=== PATIENT | male | born 1975 | race Caucasian/White ===

== ENCOUNTER 2025-02-25 10:33 | Observation (INO) | payer BC, SELFPAY ==
[2025-02-25 10:45] VITALS: BP 138/91; PULSE 69; RESP 24; TEMP 36.6; O2SAT 97; BMI 33.8
--- NOTE | 2025-02-25 11:59 | ECG_ITS ---
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 Measurements Intervals [place] Rate: 67 P: 37 [place]: 167 QRS: -7 QRSD: 98 T: 22 QT: 392 QTc: 414 Interpretive Statements SINUS RHYTHM No previous ECG available for comparison Electronically Signed On 02-25-2025 12:57:04 CDT by Elva Sinclair M.D. [email or web address]
[2025-02-25 12:00] VITALS: BP 123/80; PULSE 73; RESP 24; TEMP 36.6; O2SAT 95
--- NOTE | 2025-02-25 12:15 | PC.NURSE ---
received into room 112-2,as transfer from [facility],at 10:45.family had driven him to [facility].pt is alert and awake and oriented x 4.sr on monitor.pt is c/o of chest tightness in left chest..rating pain 3/10.vss.no sob,no diaphoresis.d-dimer and troponins were negative a formerly [facility], [facility].dr cabral notified that pt is in house.
--- NOTE | 2025-02-25 13:31 | USCV_ITS ---
Pelon Sheffield Age: 49 Gender: M : 1975 Exam Date: 02/25/2025 14:31 Ordering Phys: Nini Olivas MD Technologist: EDDIE [place] [facility] [place]: angina BP: 123 / 80 HR: 75 Rhythm: Sinus Technical Quality: Adequate MEASUREMENTS (Male / Female) Normal Values 2D ECHO LVOT Diameter 2.0 cm LV Ejection Fraction MOD 4C 66.5 % LV Ejection Fraction MOD 2C 64.6 % LV Ejection Fraction 2C AL 62.5 % LA Diameter 4.1 cm RA Systolic Volume 4C AL 38.8 ml RA Systolic Volume 4C MOD 36.1 ml LA Sys Volume AL 44.2 cm cubed LA Sys Volume Index AL 17.5 cm cubed/m squared Aorta at Sinotubular Diameter 2.8 cm M-MODE LA Ao Ratio MM 1.3 AV Cusp Separation MM 2.0 cm DOPPLER AV Peak Velocity 121.0 cm/s LVOT Peak Velocity 97.0 cm/s AV Area Cont Eq vti 2.4 cm squared AV Area Cont Eq pk 2.6 cm squared MV Peak Velocity 72.0 cm/s MV Area PHT 4.1 cm squared Mitral E to A Ratio 1.0 TV Peak Velocity 269.7 cm/s TR Peak Velocity 311.0 cm/s TR Peak Gradient 38.7 mmHg TR Mean Velocity 224.0 cm/s TR Mean Gradient 21.6 mmHg TR Velocity Time Integral 65.7 cm PV Peak Velocity 100.7 cm/s RV Ejection Time 0.3 s FINDINGS Left Ventricle Normal left ventricular size and systolic function, EF 62%.. No regional wall motion abnormalities. Right Ventricle The right ventricle is normal in size and function. Right Atrium The right atrium is normal in size. Left Atrium The left atrium is normal in size. Mitral Valve No gross abnormalities noted.trace mitral valve regurgitation. Aortic Valve No gross abnormalities noted Tricuspid Valve Trace tricuspid valve regurgitation. Pulmonic Valve Structurally normal pulmonic valve without significant stenosis. There is no pulmonic regurgitation. Pericardium Normal pericardium without effusion. Aorta Normal ascending aorta dimension. IVC Inferior vena cava not visualized. CONCLUSIONS Normal left ventricular size and systolic function, EF 62%.. No regional wall motion abnormalities. Normal cardiac chamber sizes. Trace of mitral and tricuspid regurgitation. The PA pressure could not be calculated because of the poor Doppler signals There is no pericardial effusion. There are no intracardiac masses. No similar previous studies are available for comparison Dr Elva Sinclair MD [facility] (Electronically Signed) Final Date: 26 February 2025 09:27 S
--- NOTE | 2025-02-25 13:37 | P.HP_ITS ---
Providers/Chief Complaint 2 Admitting Physician: Nini Olivas MD Chief Complaint: Chest Pain History of Present Illness Pelon Sheffield is a 49 year old male without known significant comorbidities who presented to outside hospital today with chief complaints of chest pain. Patient states that the pain woke him up from sleep at around 530 this morning. It was located on the left side of his chest. Radiating anteriorly and then into his arm. Pain was rated 8 out of 10 at onset. He took 3 aspirins at home as he was worried about having an NH and presented to the nearest hospital. There is he received sublingual nitroglycerin twice and his pain is currently down to 2 out of 10. In reviewing the records from [facility], D-dimer was negative therefore PE was ruled out. First troponin was negative. EKG did not show any signs of acute ST-T wave elevation or other changes. Associated symptoms included intense nausea diaphoresis and feeling short of breath at the time of onset of symptoms. This feeling has now subsided. He complains of generalized weakness after this episode. 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 He has not been sick recently. No fever chills. No history of premature CAD in family. No known history of hypertension diabetes or dyslipidemia. He does not smoke but chews tobacco. Review of Systems 2 General: Reports: 10 or more systems reviewed and unremarkable except in HPI and below Const: Denies: fever(s), chills or body aches Eyes: Denies: change in vision, blurry vision or photophobia ENMT: Reports: hoarseness; Denies: throat pain, enlarged tonsils, odynophagia or nasal congestion Card: Denies: chest pain, palpitations, irregular heart rhythm, edema, swelling of feet/ankles, lightheadedness, pre-syncope, dyspnea on exertion or orthopnea Resp: Denies: dyspnea, productive cough, non-productive cough, wheezing, stridor, pain on inspiration, change in phlegm color, hemoptysis or chest congestion GI: Denies: abdominal pain, nausea, vomiting, hematemesis, coffee ground emesis, dysphagia, heartburn, diarrhea, constipation, GI cramping, change in stool character, hematochezia or melena : Denies: flank pain, dysuria, urinary frequency, urinary urgency, urinary hesitancy or hematuria Musc: Denies: neck pain, back pain, extremity pain, joint swelling, joint warmth or deformity Neuro: Denies: headache(s), numbness in extremities, weakness in extremities, sensory changes, difficulty walking, frequent falls, dizziness, vertigo, behavioral changes, Slurred speech present or seizure-like activity Psych: Denies: anxiety, depression, suicidal ideation or homicidal ideation Endo: Denies: polyuria, polydipsia, tired all the time, cold intolerance or hot flashes Dorian/Lymph: Denies: easy bruising or easy bleeding Medications/Allergies Home Medications ?Medication ?Instructions ?Recorded ?Confirmed ?Last Taken ?Type Aspirin Low-Strength 81 mg PO DAILY 02/25/2502/0402/25/25 05:00 History 81 mg Allergies Allergy/AdvReac Type Severity Reaction Status Date / Time egg Allergy ALGY-Hives Verified 02/25/25 10:58 Vitals/I&O/Wt Last Vital Signs Temp 97.8 F 02/25/25 12:00 Pulse 73 02/25/25 12:00 Resp 24 H 02/25/25 12:00 BP 123/80 02/25/25 12:00 Pulse Ox 95 02/25/25 12:00 O2 Del Method Room Air 02/25/25 10:45 Weight last 48 hrs Weight 119.522 kg Physical Exam 2 Narrative: General: No acute distress, AO x3 HEENT: PERRLA, pupils bilaterally equal and reactive, pallors not present Chest: Normal vesicular breath sounds, no added sounds, equal good air entry bilaterally CVS: S1-S2 regular, no murmurs, no tachycardia, no gallops, no rubs Abdomen: Soft, nontender, no organomegaly, bowel sounds present Neuro: No focal deficits, no facial deformity, AO x3, power 5/5 in all limbs Data 02/25/25 13:27 02/25/25 13:27 A&P Assessment and plan 1. Chest pain: Patient transferred from outside hospital in view of chest pain. EKG did not show any acute ST-T wave changes. First troponin was negative at [facility]. D-dimer was additionally negative. He currently reports that pain is still persisting however improved after being administered nitroglycerin. Concern is for potential anginal chest pain versus NSTEMI. We will order troponin series and EKG series here for serial follow-through. Obtain chest x-ray. D-dimer previously reported negative from [facility]. Echocardiogram ordered to assess for any regional wall motion abnormalities. HbA1c lipid panel screen. Further plan based on results of above testing - stress test vs cardiology assessment PDMP PDMP Reviewed: Not Reviewed Attestations 2 Medical Necessity Statement*: Less than 2 midnight stay is currently anticipated Coding Level of Care Code Acute Code for Chg Fwd High MDM includes number and complexity of problems actively addressed during encounter, amount and/or complexity of data reviewed/ordered and described risk of complication, morbidity or mortality of management as documented Diagnoses Chest pain R07.9
[2025-02-25 13:41] LABS: Hematocrit 43.7 % (37-53); Hemoglobin 15.30 g/dL (11.27-16.99); Mean Corpuscular HGB Conc 35.0 g/dL (30-55); Mean Corpuscular Hemoglobin 30.3 pg (27-33); Mean Corpuscular Volume 86.5 fl (82-101); Nucleated Red Blood Cells % 0 %; Platelet Count 243 10^3/cmm (157-399); Red Blood Count 5.05 10^6/uL (3.85-5.65); White Blood Count 7.64 10^3/uL (3.29-11.43)
[2025-02-25 14:07] VITALS: BP 123/80; PULSE 75
[2025-02-25] MEDS: nitroglycerin 1 gm/inch oint Pkt 0.5 INCH TOPICAL ×2 (14:07→20:20)
[2025-02-25 14:08] LABS: Troponin(5th) Baseline < 6 ng/L (0-15)
[2025-02-25 14:19] LABS: Alanine Aminotransferase 42 U/L (0-41); Albumin Level 4.1 g/dL (3.5-5.2); Alkaline Phosphatase 79 U/L (40-130); Aspartate Amino Transferase 22 U/L (0-40); Blood Urea Nitrogen 10 mg/dL (6-20); Calcium 8.9 mg/dL (8.5-10.5); Carbon Dioxide 18 mmol/L (22-29); Chloride 105 mmol/L (98-107); Cholesterol 161 mg/dL (0-200); Creatinine Clr Calc Pharmacy 125.4580; Globulin 2.1 g/dL (1.3-4.6); Glucose 89 mg/dL (65-115); HDL Cholesterol 33 mg/dL (60-100); Osmolality Calculated 281 mOsm/kg (285-295); Sodium 136 mmol/L (136-145); Thyroid Stimulating Hormone 1.27 uIU/mL (0.27-4.20); Total Protein 6.2 g/dL (6.6-8.7); Triglycerides 125 mg/dL (0-150)
[2025-02-25 14:20] LABS: Anion Gap 17.1 (5-19); Estmated Average Glucose 114; Hemoglobin A1C 5.6 % (4.0-6.0); Potassium 4.1 mmol/L (3.5-5.1)
--- NOTE | 2025-02-25 14:59 | ECG_ITS ---
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 Measurements Intervals [place] Rate: 80 P: 38 RI: 163 QRS: -18 QRSD: 92 T: 30 QT: 368 QTc: 427 Interpretive Statements SINUS RHYTHM Compared to ECG 02/25/2025 12:08:01 No significant changes Electronically Signed On 02-26-2025 18:56:43 CDT by Elva Sinclair M.D. [email or web address] [id number]
--- NOTE | 2025-02-25 15:35 | ECG_ITS ---
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 Measurements Intervals [place] Rate: 81 P: 45 DC: 168 QRS: -18 QRSD: 94 T: 29 QT: 362 QTc: 420 Interpretive Statements SINUS RHYTHM Compared to ECG 02/25/2025 14:59:07 No significant changes Electronically Signed On 02-26-2025 19:11:03 CDT by Elva Sinclair M.D. [email or web address] [id number]
[2025-02-25 15:48] LABS: Troponin 5 2HR < 6.0 ng/L (0-15); Troponin 5 2HR Delta 0 ABS# (0-10)
[2025-02-25 16:00] VITALS: BP 146/80; PULSE 97; RESP 18; TEMP 37.3; O2SAT 93
[2025-02-25 20:00] VITALS: BP 106/77; PULSE 82; RESP 15; TEMP 37.1; O2SAT 95
--- NOTE | 2025-02-25 21:05 | ECG_ITS ---
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 Measurements Intervals [place] Rate: 83 P: 45 [place]: 159 QRS: -21 QRSD: 98 T: 31 QT: 352 QTc: 415 Interpretive Statements SINUS RHYTHM BORDERLINE LEFT AXIS DEVIATION [QRS AXIS < -20] Compared to ECG 02/25/2025 16:20:10 No significant changes Electronically Signed On 02-26-2025 19:06:03 CDT by Elva Sinclair M.D. [email or web address] [id number]
[2025-02-25 21:16] LABS: Troponin 5 6HR < 6.0 ng/L (0-15); Troponin 5 6HR Delta 0 ng/L (0-12)
[2025-02-26] VITALS (7 sets, daily range): BP systolic 112–130; BP diastolic 66–90; PULSE 68–91; RESP 20–24; TEMP 36.4–37.1; O2SAT 95–98
--- NOTE | 2025-02-26 10:54 | CTR_ITS ---
PROCEDURE INFORMATION: Exam: CTA Chest With Contrast Exam date and time: 02/26/2025 11:10 AM Age: 49 years old Clinical indication: Pain; Dyspnea; Chest pressure; Additional info: Chest pain, evaluate for pe TECHNIQUE: Imaging protocol: Computed tomographic angiography of the chest with contrast. Exam focused on the arteries. 3D rendering (Not supervised by radiologist): MIP and/or 3D reconstructed images were created by the technologist. Radiation optimization: All CT scans at this facility use at least one of these dose optimization techniques: automated exposure control; mA and/or kV adjustment per patient size (includes targeted exams where dose is matched to clinical indication); or iterative reconstruction. Contrast material: OMNIPAQUE 350; Contrast volume: 69 ml; Contrast route: INTRAVENOUS (IV); COMPARISON: No relevant prior studies available. RADIATION DOSE METRICS: Total DLP (mGy-cm): 496 FINDINGS: Pulmonary arteries: No central or lobar pulmonary embolism. Aorta: Unremarkable. No aortic aneurysm. No aortic dissection. Lungs: Mild dependent atelectasis bilaterally. Pleural spaces: Unremarkable. No pneumothorax. No pleural effusion. Heart: Unremarkable. No cardiomegaly. No pericardial effusion. Lymph nodes: Calcified hilar lymph nodes likely reflecting sequela of chronic granulomatous disease. Pancreas: Mild fatty parenchymal atrophy of the pancreas. Spleen: Multiple calcified granulomas in the spleen. Bones/joints: Mild multilevel degenerative disease of the thoracic spine. Soft tissues: Mild gynecomastia bilaterally. CT/CT angio chest PE protcl [id number] IMPRESSION: 1. No acute central or lobar pulmonary embolism. 2. No focal consolidation, pneumothorax, or pleural effusion.
--- NOTE | 2025-02-26 10:56 | P.PN_ITS ---
Subjective 2 Subjective: States pain is better compared to yesterday, he however still feels like he has chest pressure over the central chest. Rates it at 5 out of 10. Not associated with any exertion or movement. Medications: Reviewed: Yes Vitals/I&O/Wt Last Vital Signs Temp 98.3 F 02/26/25 08:00 Pulse 85 02/26/25 08:00 Resp 20 H 02/26/25 08:00 BP 127/86 02/26/25 08:00 Pulse Ox 96 02/26/25 08:00 O2 Del Method Room Air 02/26/25 08:00 02/25/25 02/26/25 02/26/25 22:59 06:59 14:59 Intake Total 720 / 720 600 / 1320 240 / 240 Balance 720 / 720 600 / 1320 240 / 240 Weight last 48 hrs Weight 119.612 kg Weight 119.522 kg Physical Exam 2 Narrative: General: No acute distress, AO x3 HEENT: PERRLA, pupils bilaterally equal and reactive, pallors not present Chest: Normal vesicular breath sounds, no added sounds, equal good air entry bilaterally CVS: S1-S2 regular, no murmurs, no tachycardia, no gallops, no rubs Abdomen: Soft, nontender, no organomegaly, bowel sounds present Neuro: No focal deficits, no facial deformity, AO x3, power 5/5 in all limbs Data 02/25/25 13:27 02/25/25 13:27 A&P Assessment and plan 1. Chest pain: Patient transferred from outside hospital in view of chest pain. EKG did not show any acute ST-T wave changes. First troponin was negative at [facility]. D-dimer was additionally negative. He currently reports that pain is still persisting however improved after being administered nitroglycerin. Concern is for potential anginal chest pain versus NSTEMI. We will order troponin series and EKG series here for serial follow-through. Obtain chest x-ray. D-dimer previously reported negative from [facility]. Echocardiogram ordered to assess for any regional wall motion abnormalities. HbA1c lipid panel screen. Further plan based on results of above testing - stress test vs cardiology assessment February 26, 2025 Continues to complain of central chest pressure. Not related to any exertion. It is constant 5 out of 10. There is noted to be tenderness over the left chest wall. Pain to palpation over the left lateral ribs. 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 Suspect this may be musculoskeletal in nature, however with ongoing pain would want to exclude PE. Will proceed with CTA of the chest. This study will additionally evaluate for any rib fractures or masses given that patient reports a history of chronic tobacco chewing over years. If negative will proceed with cardiac stress test tomorrow morning to evaluate for cardiac etiology. Musculoskeletal pain remains in the differentials. Trial of Toradol today. PDMP PDMP Reviewed: Not Reviewed Attestations 2 Medical Necessity Statement*: Planned CTA and stress test Coding Level of Care Code Acute Code for [facility] Fwd Diagnoses Chest pain R07.9
[2025-02-26] MEDS: iohexol 350 mg/mL 500 mL Btl (per mL) IV (11:18)
--- NOTE | 2025-02-26 15:09 | P.CONIM_ITS ---
Providers/Reason For Consult 2 Consulting Physician/Specialty*: JEAN Sinclair MD/cardiology Reason for Consult*: Patient with new onset of chest pain Requesting Physician: Dr Emma Olivsa Attending Physician: Nini Olivas MD History of Present Illness History of Present Illness Pelon Sheffield is a 49 year old male with no significant past medical history, is transferred to our hospital from [facility] emergency room where he presented with complaints of acute onset of chest pain. According the patient, he has been in his baseline state of health up until 5:30 in the morning of yesterday when he woke up with left-sided chest pain. The pain started in the axillary region and then radiated to the left side of the chest. It is moderate to severe in intensity. He had associated shortness of breath, nausea, sweating and some dizziness. One time he almost felt like going to pass out. He took a total of 3 baby aspirin at home. Pain may have subsided a little bit. Because of the persistence of the chest pain, he was taken to the [facility] emergency room. His initial cardiac workup was negative. He D-dimer was found to be negative. Chest pain might have lasted for a total of an hour and a half. He was given total of 2 sublingual nitro in the emergency room. The chest pains finally subsided. However he continued to have some tightness or heaviness in the chest. At the time of examination, patient is complaining of some heaviness/tight feeling. He denies any history of fall or any traumatic injury of the chest wall. No history of any fever, chills or cough. 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 He has not been using [employer] in the recent past. No unusual physical activities in the recent past He has no previous history of coronary coronary disease, myocardial infarction or congestive heart failure. He was chewing tobacco for the last 40 years or so. No alcohol abuse or any substance abuse. He chews 1 can of tobacco every other day. He father had a PCI in his 50s. Mother had congestive heart failure. No other relevant family history. Review of Systems 2 Narrative: CONSTITUTIONAL: No fever or chills. EYES: No blurring of vision or other visual disturbances lately. ENT: No hoarseness of voice, auditory disturbances or sore throat. CARDIOVASCULAR: As mentioned above. RESPIRATORY: He has a history of chronic cough ever since the COVID GASTROINTESTINAL: No hematemesis or melena. GENITOURINARY: No dysuria or hematuria. INTEGUMENTARY: No skin rashes or history of skin cancer. NEURO: No transient ischemic attacks or amaurosis. PSYCHIATRIC: No history of psychosis or major depression. HEMATOLOGIC: No bleeding disorders or significant anemia. ENDOCRINE: No history of polyuria or polydipsia. MUSCULOSKELETAL: No recent joint pain or swelling. ALLERGY/IMMUNOLOGY: As mentioned above. Medications/Allergies Home Medications ?Medication ?Instructions ?Recorded ?Confirmed ?Last Taken ?Type Aspirin Low-Strength 81 mg PO DAILY 02/25/25 08/09/2702/25/25 05:00 History 81 mg Allergies Allergy/AdvReac Type Severity Reaction Status Date / Time egg Allergy ALGY-Hives Verified 02/25/25 10:58 Current Medications Generic Name Dose Route Start Last Admin Trade Name Freq PRN Reason Stop Dose Admin Aspirin 81 mg 02/26/25 09:00 02/26/25 08:42 Aspirin 81 Mg Ec Tablet PO 81 mg DAILY KYLEIGH Administration Atorvastatin Calcium 40 mg 02/25/25 21:00 02/25/25 20:20 Atorvastatin 40 Mg Tablet PO 40 mg BEDTIME KYLEIGH Administration Enoxaparin Sodium 40 mg 02/25/25 13:45 02/26/25 12:41 Enoxaparin 40 Mg/0.4 Ml Syringe SUBCUT 40 mg Q24H KYLEIGH Administration Nitroglycerin 0.5 inch 02/25/25 13:45 02/26/25 12:18 Nitroglycerin 1 Gm/Inch Oint Pkt TOPICAL Not Given Q6H KYLEIGH Pantoprazole Sodium 40 mg 02/26/25 09:00 02/26/25 08:[address] 40 Mg Tablet PO 40 mg DAILY KYLEIGH Administration Vitals/I&O/Wt Last Vital Signs Temp 97.5 F L 02/26/25 12:00 Pulse 73 02/26/25 12:00 Resp 24 H 02/26/25 12:00 BP 130/76 02/26/25 12:00 Pulse Ox 95 02/26/25 12:00 O2 Del Method Room Air 02/26/25 12:00 02/26/25 02/26/25 02/26/25 06:59 14:59 22:59 Intake Total 600 / 1320 480 / 480 Balance 600 / 1320 480 / 480 Weight last 48 hrs Weight 263 lb 11.2 oz Weight 263 lb 8 oz Physical Exam 2 Narrative: GENERAL: The patient is alert and oriented times three. Not in any acute distress. HEENT: No significant pallor, icterus or lymphadenopathy.Oral cavity: There are no mucous membrane lesions. NECK: Trachea appears to be central. No masses noted. No JVD or thyromegaly appreciated. RESPIRATORY: Chest is symmetrical. No intercostals muscle retraction or any accessory muscle activation. There is no chest wall tenderness. Breath sounds are heard bilaterally. No rales or rhonchi heard. No evidence of any consolidation. BREASTS: Deferred. HEART: The heart sounds are normal. No S3 or S4. No significant murmurs. No pericardial rub ABDOMEN: No vessel pulsations or distention. No tenderness. No organomegaly appreciated. Bowel sounds are normally heard. : Deferred. RECTAL: Deferred. LYMPHATIC: No lymphadenopathy noted in the neck. EXTREMITIES: No edema or cyanosis. No clubbing. MUSCULOSKELETAL: No acute joint deformities or swelling SKIN: There are no significant rashes or ecchymosis NEUROPSYCHIATRIC: The patient is alert and oriented x3. Appears to be in a good mood. No tremors or rigidity noted. Data 02/25/25 13:27 02/25/25 13:27 Other Labs: Laboratory Last Values WBC 7.64 10^3/uL (3.29-11.43) 02/25/25 13:27 RBC 5.05 10^6/uL (3.85-5.65) 02/25/25 13:27 Hgb 15.30 g/dL (11.27-16.99) 02/25/25 13:27 Hct 43.7 % (37-53) 02/25/25 13:27 MCV 86.5 fl (82-101) 02/25/25 13:27 MCH 30.3 pg (27-33) 02/25/25 13:27 MCHC 35.0 g/dL (30-55) 02/25/25 13:27 RDW 11.8 % (12.1-15.1) L 02/25/25 13:27 Plt Count 243 10^3/cmm (157-399) 02/25/25 13:27 MPV 9.3 fL (7.4-10.4) 02/25/25 13:27 Neut % (Auto) 68.7 % 02/25/25 13:27 Lymph % (Auto) 21.5 % 02/25/25 13:27 [place] % (Auto) 7.5 % 02/25/25 13:27 Eos % (Auto) 1.4 % 02/25/25 13:27 Baso % (Auto) 0.5 % 02/25/25 13:27 Neut # (Auto) 5.25 10^3/uL (1.8-7.7) 02/25/25 13:27 Lymph # (Auto) 1.6 10^3/uL (0.8-4.8) 02/25/25 13:27 [place] # (Auto) 0.6 10^3/uL (0.2-0.9) 02/25/25 13:27 Eos # (Auto) 0.1 10^3/uL (0.0-0.8) 02/25/25 13:27 Baso # (Auto) 0.0 10^3/uL (0.0-0.1) 02/25/25 13:27 Nucleated RBC % (auto) 0 % 02/25/25 13:27 Nucleated RBCs # 0.0 /100WBC 02/25/25 13:27 D-Dimer <= 0.27 ug/mLFEU (0-0.59) 02/25/25 15:13 Sodium 136 mmol/L (136-145) 02/25/25 13:27 Potassium 4.1 mmol/L (3.5-5.1) 02/25/25 13:27 Chloride 105 mmol/L (98-107) 02/25/25 13:27 Carbon Dioxide 18 mmol/L (22-29) L 02/25/25 13:27 Anion Gap 17.1 (5-19) 02/25/25 13:27 BUN 10 mg/dL (6-20) 02/25/25 13:27 Creatinine 1.0 mg/dL (0.7-1.2) 02/25/25 13:27 GFR Calculation 80.1 mL/min (90-130) L 02/25/25 13:27 Glucose 89 mg/dL (65-115) 02/25/25 13:27 Estimat Average Glucose 114 02/25/25 13:27 Hemoglobin A1c 5.6 % (4.0-6.0) 02/25/25 13:27 Calculated Osmolality 281 mOsm/kg (285-295) L 02/25/25 13:27 Calcium 8.9 mg/dL (8.5-10.5) 02/25/25 13:27 Total Bilirubin 0.6 mg/dL (0.15-1.2) 02/25/25 13:27 AST 22 U/L (0-40) 02/25/25 13:27 ALT 42 U/L (0-41) H 02/25/25 13:27 Alkaline Phosphatase 79 U/L (40-130) 02/25/25 13:27 Troponin T 5th Gen ng/L Cancelled 02/25/25 13:27 Troponin T Baseline < 6 ng/L (0-15) 02/25/25 13:27 Troponin T 120 Minute < 6.0 ng/L (0-15) 02/25/25 15:13 Delta Troponin T 0 ABS# (0-10) 02/25/25 15:13 Troponin T Hi Sens 6Hr < 6.0 ng/L (0-15) 02/25/25 20:33 Troponin T Hi Sens 6Hr Delta 0 ng/L (0-12) 02/25/25 20:33 Total Protein 6.2 g/dL (6.6-8.7) L 02/25/25 13:27 Albumin 4.1 g/dL (3.5-5.2) 02/25/25 13:27 Globulin 2.1 g/dL (1.3-4.6) 02/25/25 13:27 Triglycerides 125 mg/dL (0-150) 02/25/25 13:27 Cholesterol 161 mg/dL (0-200) 02/25/25 13:27 LDL Cholesterol, Calc 103 mg/dL (50-129) 02/25/25 13:27 HDL Cholesterol 33 mg/dL (60-100) L 02/25/25 13:27 LDL/HDL Ratio 3.12 RATIO (0.00-3.22) 02/25/25 13:27 Cholesterol/HDL Ratio 4.88 mg/dL (1.0-5.00) 02/25/25 13:27 TSH 1.27 uIU/mL (0.27-4.20) 02/25/25 13:27 A&P Assessment and plan 1. Other chest pain: The etiology of the chest pain is not clear. PE is ruled out. Possibility of coronary ischemia causes cannot be excluded. His echocardiogram and EKGs are unremarkable. He continues to have the chest discomfort. Musculoskeletal etiology cannot be excluded. For further evaluation of the symptoms, an exercise stress test would be appropriate. 2. Smokeless tobacco use: Patient strongly advised to quit smoking. 3. Family history of premature CAD: In view of the family history, possibly coronary artery disease causing the symptoms is a consideration. For further evaluation, and exercise/sestamibi/sestamibi stress test would be appropriate. Plan: The echocardiogram was reviewed. Patient was found to have normal LV size ejection fraction with no significant wall motion abnormalities Based on the results of the above tests and the patient's clinical progress, further recommendations will be made. Thank for the opportunity to evaluate this patient make these recommendations PDMP PDMP Reviewed: Not Reviewed Consult Attestations 2 Medical Necessity Statement: Patient requires continued hospital stay for close monitoring and further management Coding Level of Care Code 36623 Diagnoses Other chest pain R07.89 Chest pain type: other chest pain Smokeless tobacco use Z72.0 Family history of premature CAD Z82.49
--- NOTE | 2025-02-26 19:14 | ECG_ITS ---
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 Interpretive Statements Lung unchanged pre/post procedure; Intraprocedure shortess of breath; Symptoms resoled by discharge PROCEDURE: The baseline electrocardiogram showed normal sinus rhythm with normal ST-Ts. At the baseline, the patient's blood pressure was 128/80 mm Hg with a heart rate of 78. The patient exercised for 8 minutes and 16 seconds on a standard [place] protocol. Patient attained a maximum heart rate of 155 beats per minute(89% of the maximum predicted heart rate) with a blood pressure at the peak exercise of 157/74mm Hg. The EKG at the peak exercise revealed tall peaked T waves in lead I and aVL. Patient did not have any chest pain or any significant arrhythmis with the exercise Sestamibi was injected 1 minute prior to the peak exercise During the recovery phase, there were no new changes. Blood pressure at the end of the recovery phase was 129/79 mm Hg with a heart rate of 1 of per minute. CONCLUSION: 1. Nonspecific EKG changes with the treadmill exercise 2. Exercise-induced chest discomfort/pain 3. Fair exercise tolerance, attained a maximum of 10.2 METs 4. Sestamibi/Sestamibi perfusion results pending; see separate report. Electronically Signed On 02-27-2025 21:11:03 CDT by Elva Sinclair M.D. [email or web address]
[2025-02-27] VITALS (7 sets, daily range): BP systolic 113–135; BP diastolic 63–90; PULSE 71–106; RESP 14–27; TEMP 36.4–37.1; O2SAT 94–99
--- NOTE | 2025-02-27 08:34 | PC.NURSE ---
Pt back in room from stress test. All vitals WNL. Patient reports a headache and pleasantly refused his nitro paste. No PRN medications or breakfast give per patient.
--- NOTE | 2025-02-27 09:44 | PC.CHAP ---
Pastoral Care Encounter/Spiritual Assessment Type of Contact [] Declined director channel visit [] Patient/Family/Request visit [] Outpatient visit [] Follow-up visit [] Physician referral [] Code/Alert [x] Routine visit [] Staff referral [] Actively dying [x] Patient sleeping [] Family support [] [] Out of room [] Palliative care [] [] Receiving care in room [] Pre-surgical visit [] Trauma [] Long length of stay [] ICU visit [] Other: Relational/Emotional Strength [] Patient feels connected with others/family/visitors/staff [] Distress [] Loneliness/isolation [] Abandonment Spirituality of Patient [] Person of Latha [] Attends Spiritism of their Latha [] Believes in Prayer [] Reads Bible or Worship materials [] There are Spiritual issues to be addressed Zoogler Interventions [x] Prayer [] Active listening [] Non-anxious presence [] Spiritual/emotional support [] Crisis/trauma care [] Spiritual counseling [] Bereavement support [] Provided bereavement packet [] Provided Bible/devotional materials [] Provided toy/stuffed animal, coloring book to patient or family member [] Provided Communion [] Anointing/[place] [] Salvation [] Completed spiritual assessment [] Other: Impact on Illness or Injury [] Angry [] Fearful [] Anxious [] Often cries [] Exhaustion [] Unable to work [] Unable to attend confucianist [] Unable to walk/stand [] Unable to read [] Unable to drive [] Unable to eat/drink [] Unable to sleep [] Unable to be with family [] Patient intubated [] Other: Summary Time spent with patient
--- NOTE | 2025-02-27 15:03 | P.PN_ITS ---
Subjective 2 Subjective: chest pain better some present with palpation stress test done this AM Vitals/I&O/Wt Last Vital Signs Temp 98.7 F 02/27/25 11:09 Pulse 76 02/27/25 11:09 Resp 22 H 02/27/25 11:09 BP 122/82 02/27/25 11:09 Pulse Ox 99 02/27/25 11:09 O2 Del Method Room Air 02/27/25 11:09 02/27/25 02/27/25 02/27/25 06:59 14:59 22:59 Intake Total 0 / 1080 240 / 240 Balance 0 / 1080 240 / 240 Weight last 48 hrs Weight 158 lb 3.2 oz Weight 263 lb 11.2 oz Physical Exam 2 Narrative: General: No acute distress, AO x3 HEENT: PERRLA, pupils bilaterally equal and reactive, pallors not present Chest: Normal vesicular breath sounds, no added sounds, equal good air entry bilaterally. some TTP CVS: S1-S2 regular, no murmurs, no tachycardia, no gallops, no rubs Abdomen: Soft, nontender, no organomegaly, bowel sounds present Neuro: No focal deficits, no facial deformity, AO x3, power 5/5 in all limbs Data 02/25/25 13:27 02/25/25 13:27 A&P Assessment and plan 1. Other chest pain: abnormal stress test await cards recd continue asa, statin hold toradol prn nitro 2. Family history of premature CAD: 3. 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
--- NOTE | 2025-02-27 19:14 | NMCV_ITS ---
NM olivia perf SPECT r/s* [id number] Pelon Sehffield Age: 49 Gender: M : 1975 Exam Date: 02/27/2025 06:41 Ordering Phys: Nini Olivas MD Technologist: JOSÉ LUIS Michael Exam Location: [facility] Indications: cp STRESS TEST Please see separate stress test report in [facility] for full findings IMAGE PROTOCOL Rest/Stress 1 Radiopharmaceutical Dose (mCi) Administration Site Administered by Rest: Tc-99m 10.9 IV Gabrielle Norris, JOINTER SUBM[employer]INE CABLE Sestamibi Stress:Tc-99m 33 IV Gabrielle Norris, JO[employer] CABLE Sestamibi Rest: 27-Feb-2025 60 Discovery 630 Stress: 27-Feb-2025 15 Discovery 630 Radiopharmaceutical was injected at 87 % maximum heart rate. Images obtained in supine and prone position. SPECT RESULTS Technical Quality: Good Raw Data Analysis: Normal Image Corrections: No attenuation or motion correction applied Summed Stress Score: 3 Summed Rest Score: 0 Summed Difference Score: 3 PERFUSION FINDINGS There is a medium sized, mostly reversible perfusion defect seen in anterolateral and lateral guerrero. This is consistent with medium sized area of ischemia in left circumflex artery territory. Attenuation artifact can not be completely ruled out. Clinical correlation is required. FUNCTIONAL RESULTS (calculated via Gated SPECT) Stress Image LV EF (%): 62 Stress EDV (mL):95 TID: 0.74 Stress ESV (mL):36 FUNCTIONAL FINDINGS: There is normal left ventricular systolic function. IMPRESSIONS 1. Medium sized area of ischemia seen in left circumflex artery territory. Attenuation artifact cannot completely be ruled out. Clinical correlation is required. 2. LV systolic function is normal Aguilar Riley MD (Electronically Signed) Final Date: 27 February 2025 14:41 S
--- NOTE | 2025-02-27 21:03 | P.PN_ITS ---
Subjective 2 Subjective: The patient underwent the Myocardial perfusion imaging today. He was found to have a moderate area of ischemia in the distribution of the circumflex artery. He had chest pain during the exercise. Currently he is pain-free. Medications: Medication Review Details: Current Medications Acetaminophen (Acetaminophen 325 Mg Tablet) 650 mg PO Q6H PRN PRN Reason: Mild/Mod Pain Or Temp >/= 101 Aspirin (Aspirin 81 Mg Ec Tablet) 81 mg PO DAILY [facility] Last Admin: 02/27/25 08:21 Dose: 81 mg Atorvastatin Calcium (Atorvastatin 40 Mg Tablet) 40 mg PO BEDTIME [facility] Last Admin: 02/27/25 20:33 Dose: 40 mg Enoxaparin Sodium (Enoxaparin 40 Mg/0.4 Ml Syringe) 40 mg SUBCUT Q24H [facility] Last Admin: 02/27/25 13:00 Dose: 40 mg Esmolol HCl (Esmolol 100 Mg/10 Ml Sdv) 5 mg IV PRN PRN PRN Reason: See dose instructions Ketorolac Tromethamine (Ketorolac 30 Mg/Ml Inj) 15 mg IVP Q8H PRN PRN Reason: MODERATE PAIN Stop: 03/03/25 10:58 Metoprolol Tartrate (Metoprolol Tartrate 1 Mg/1 Ml Sdv 5 Ml) 5 mg IV PRN PRN PRN Reason: See dose instructions Morphine Sulfate (Morphine 4 Mg/Ml Sdv 1 Ml) 2 mg IVP Q4H PRN PRN Reason: SEVERE PAIN Naloxone HCl (Naloxone 0.4 Mg/Ml Sdv) 0.1 mg IVP Q2M PRN PRN Reason: OPIATERV Nitroglycerin (Nitroglycerin 1 Gm/Inch Oint Pkt) 0.5 inch TOPICAL Q6H [facility] Last Admin: 02/27/25 20:35 Dose: Not Given Nitroglycerin (Nitroglycerin 0.4 Mg Sublingual Tablet) 0.4 mg SUBLINGUAL Q5M PRN PRN Reason: CHEST PAIN Stop: 02/28/25 06:38 Ondansetron HCl (Ondansetron 2 Mg/Ml Sdv 2 Ml) 4 mg IVP Q8H PRN PRN Reason: vomiting, or N/V if npo Ondansetron HCl (Ondansetron 2 Mg/Ml Sdv 2 Ml) 4 mg IVP PRN PRN PRN Reason: NAUSEA Pantoprazole Sodium (Pantoprazole Dr 40 Mg Tablet) 40 mg PO DAILY KYLEIGH Last Admin: 02/27/25 08:22 Dose: 40 mg Vitals/I&O/Wt Last Vital Signs Temp 98.6 F 02/27/25 19:35 Pulse 91 02/27/25 19:35 Resp 20 H 02/27/25 19:35 BP 135/90 02/27/25 19:35 Pulse Ox 97 02/27/25 19:35 O2 Del Method Room Air 02/27/25 19:35 02/27/25 02/27/25 02/27/25 06:59 14:59 22:59 Intake Total 0 / 1080 240 / 240 Output Total 360 / 360 Balance 0 / 1080 240 / 240 -360 / -120 Weight last 48 hrs Weight 158 lb 3.2 oz Weight 263 lb 11.2 oz Physical Exam 2 Narrative: GENERAL: The patient is alert and oriented times three. Not in any acute distress. HEENT: No significant pallor, icterus or lymphadenopathy.Oral cavity: There are no mucous membrane lesions. NECK: Trachea appears to be central. No masses noted. No JVD or thyromegaly appreciated. RESPIRATORY: Chest is symmetrical. No intercostals muscle retraction or any accessory muscle activation. There is no chest wall tenderness. Breath sounds are heard bilaterally. No rales or rhonchi heard. No evidence of any consolidation. BREASTS: Deferred. HEART: The heart sounds are normal. No S3 or S4. No significant murmurs. No pericardial rub ABDOMEN: No vessel pulsations or distention. No tenderness. No organomegaly appreciated. Bowel sounds are normally heard. : Deferred. RECTAL: Deferred. LYMPHATIC: No lymphadenopathy noted in the neck. EXTREMITIES: No edema or cyanosis. No clubbing. MUSCULOSKELETAL: No acute joint deformities or swelling SKIN: There are no significant rashes or ecchymosis NEUROPSYCHIATRIC: The patient is alert and oriented x3. Appears to be in a good mood. No tremors or rigidity noted. Data 02/25/25 13:27 02/25/25 13:27 Other Labs: Laboratory Last Values WBC 7.64 10^3/uL (3.29-11.43) 02/25/25 13:27 RBC 5.05 10^6/uL (3.85-5.65) 02/25/25 13:27 Hgb 15.30 g/dL (11.27-16.99) 02/25/25 13:27 Hct 43.7 % (37-53) 02/25/25 13:27 MCV 86.5 fl (82-101) 02/25/25 13:27 MCH 30.3 pg (27-33) 02/25/25 13: MCHC 35.0 g/dL (30-55) 02/25/25 13: RDW 11.8 % (12.1-15.1) L 02/25/25 13:27 Plt Count 243 10^3/cmm (157-399) 02/25/25 13: MPV 9.3 fL (7.4-10.4) 02/25/25 13:27 Neut % (Auto) 68.7 % 02/25/25 13:27 Lymph % (Auto) 21.5 % 02/25/25 13:27 [place] % (Auto) 7.5 % 02/25/25 13:27 Eos % (Auto) 1.4 % 02/25/25 13:27 Baso % (Auto) 0.5 % 02/25/25 13:27 Neut # (Auto) 5.25 10^3/uL (1.8-7.7) 02/25/25 13:27 Lymph # (Auto) 1.6 10^3/uL (0.8-4.8) 02/25/25 13:27 [place] # (Auto) 0.6 10^3/uL (0.2-0.9) 02/25/25 13: Eos # (Auto) 0.1 10^3/uL (0.0-0.8) 02/25/25 13:27 Baso # (Auto) 0.0 10^3/uL (0.0-0.1) 02/25/25 13: Nucleated RBC % (auto) 0 % 02/25/25 13: Nucleated RBCs # 0.0 /100WBC 02/25/25 13:27 D-Dimer <= 0.27 ug/mLFEU (0-0.59) 02/25/25 15:13 Sodium 136 mmol/L (136-145) 02/25/25 13:27 Potassium 4.1 mmol/L (3.5-5.1) 02/25/25 13:27 Chloride 105 mmol/L (98-107) 02/25/25 13:27 Carbon Dioxide 18 mmol/L (22-29) L 02/25/25 13:27 Anion Gap 17.1 (5-19) 02/25/25 13:27 BUN 10 mg/dL (6-20) 02/25/25 13:27 Creatinine 1.0 mg/dL (0.7-1.2) 02/25/25 13:27 GFR Calculation 80.1 mL/min (90-130) L 02/25/25 13:27 Glucose 89 mg/dL (65-115) 02/25/25 13:27 Estimat Average Glucose 114 02/25/25 13:27 Hemoglobin A1c 5.6 % (4.0-6.0) 02/25/25 13:27 Calculated Osmolality 281 mOsm/kg (285-295) L 02/25/25 13:27 Calcium 8.9 mg/dL (8.5-10.5) 02/25/25 13:27 Total Bilirubin 0.6 mg/dL (0.15-1.2) 02/25/25 13:27 AST 22 U/L (0-40) 02/25/25 13:27 ALT 42 U/L (0-41) H 02/25/25 13:27 Alkaline Phosphatase 79 U/L (40-130) 02/25/25 13:27 Troponin T 5th Gen ng/L Cancelled 02/25/25 13:27 Troponin T Baseline < 6 ng/L (0-15) 02/25/25 13:27 Troponin T 120 Minute < 6.0 ng/L (0-15) 02/25/25 15:13 Delta Troponin T 0 ABS# (0-10) 02/25/25 15:13 Troponin T Hi Sens 6Hr < 6.0 ng/L (0-15) 02/25/25 20:33 Troponin T Hi Sens 6Hr Delta 0 ng/L (0-12) 02/25/25 20:33 Total Protein 6.2 g/dL (6.6-8.7) L 02/25/25 13:27 Albumin 4.1 g/dL (3.5-5.2) 02/25/25 13:27 Globulin 2.1 g/dL (1.3-4.6) 02/25/25 13:27 Triglycerides 125 mg/dL (0-150) 02/25/25 13:27 Cholesterol 161 mg/dL (0-200) 02/25/25 13:27 LDL Cholesterol, Calc 103 mg/dL (50-129) 02/25/25 13:27 HDL Cholesterol 33 mg/dL (60-100) L 02/25/25 13:27 LDL/HDL Ratio 3.12 RATIO (0.00-3.22) 02/25/25 13: Cholesterol/HDL Ratio 4.88 mg/dL (1.0-5.00) 02/25/25 13:27 TSH 1.27 uIU/mL (0.27-4.20) 02/25/25 13:27 A&P Assessment and plan 1. Abnormal myocardial perfusion study: The perfusion scan abnormalities suggestive of ischemia. The stress test findings and its implications were discussed with the patient in detail. 2. Other chest pain: The abnormal Myocardial perfusion imaging is suggesting ischemia in the distribution of the left circumflex artery. In order to further evaluate the coronary status, patient requires a cardiac catheterization. The risk and benefits were discussed. The risk of bleeding, hematoma, vascular injury, myocardial infarction, myocardial perforation, malignant cardiac arrhythmias ,CVA, renal failure and other concomitant complications were explained in detail. Patient understood this well and consented to proceed 3. Smokeless tobacco use: Patient is strongly advised to quit smoking. 4. Family history of premature CAD: In view of the family history, possibly coronary artery disease causing the symptoms is a consideration. For further evaluation, and exercise/sestamibi/sestamibi stress test would be appropriate. Plan: Will go ahead and schedule further cardiac catheterization tomorrow. May continue on the current medication for the time being. Patient with the angiogram findings, further recommendations will be made PDMP PDMP Reviewed: Not Reviewed Attestations 2 Medical Necessity Statement*: Patient requires continued hospital stay for close monitoring and further management Coding Level of Care Code 95570 Diagnoses Abnormal myocardial perfusion study R94.39 Other chest pain R07.89 Chest pain type: other chest pain Smokeless tobacco use Z72.0 Family history of premature CAD Z82.49
[2025-02-28] VITALS: BP 117/84; PULSE 67; RESP 21; TEMP 36.7; O2SAT 97
[2025-02-28 04:00] VITALS: BP 131/74; PULSE 96; RESP 23; TEMP 36.9; O2SAT 97
[2025-02-28 07:16] VITALS: BP 120/89; PULSE 69; RESP 17; TEMP 36.6; O2SAT 96
--- NOTE | 2025-02-28 09:30 | PC.CHAP ---
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 [] Patient/Family/Request visit [] Outpatient visit [] Follow-up visit [] Physician referral [] Code/Alert [x] Routine visit [] Staff referral [] Actively dying [] Patient sleeping [x] Family support [] [] Out of room [] Palliative care [] [] Receiving care in room [] Pre-surgical visit [] Trauma [] Long length of stay [] ICU visit [] Other: Relational/Emotional Strength [x] Patient feels connected with others/family/visitors/staff [x] Distress [] Loneliness/isolation [] Abandonment Spirituality of Patient [] Person of Latha [] Attends Jain of their Latha [] Believes in Prayer [] Reads Bible or Sikhism materials [] There are Spiritual issues to be addressed Color Technician Interventions [] Prayer [x] Active listening [x] Non-anxious presence [x] Spiritual/emotional support [] Crisis/trauma care [] Spiritual counseling [] Bereavement support [] Provided bereavement packet [] Provided Bible/devotional materials [] Provided toy/stuffed animal, coloring book to patient or family member [] Provided Communion [] Anointing/[place] [] Salvation [x] Completed spiritual assessment [] Other: Impact on Illness or Injury [] Angry [] Fearful [] Anxious [] Often cries [] Exhaustion [] Unable to work [] Unable to attend baptism [] Unable to walk/stand [] Unable to read [] Unable to drive [] Unable to eat/drink [] Unable to sleep [] Unable to be with family [] Patient intubated [] Other: Summary Time spent with patient 5 min
[2025-02-28 10:34] LABS: Hematocrit 49.6 % (37-53); Hemoglobin 17.30 g/dL (11.27-16.99); Mean Corpuscular HGB Conc 34.9 g/dL (30-55); Mean Corpuscular Hemoglobin 30.5 pg (27-33); Mean Corpuscular Volume 87.3 fl (82-101); Nucleated Red Blood Cells % 0 %; Platelet Count 275 10^3/cmm (157-399); Red Blood Count 5.68 10^6/uL (3.85-5.65); White Blood Count 9.57 10^3/uL (3.29-11.43)
[2025-02-28 10:56] LABS: Alanine Aminotransferase 47 U/L (0-41); Albumin Level 4.4 g/dL (3.5-5.2); Alkaline Phosphatase 85 U/L (40-130); Anion Gap 13.9 (5-19); Aspartate Amino Transferase 23 U/L (0-40); Blood Urea Nitrogen 12 mg/dL (6-20); Calcium 9.5 mg/dL (8.5-10.5); Carbon Dioxide 25 mmol/L (22-29); Chloride 104 mmol/L (98-107); Creatinine Clr Calc Pharmacy 111.4829; Globulin 3.1 g/dL (1.3-4.6); Glucose 92 mg/dL (65-115); Osmolality Calculated 287 mOsm/kg (285-295); Potassium 3.9 mmol/L (3.5-5.1); Sodium 139 mmol/L (136-145); Total Protein 7.5 g/dL (6.6-8.7)
--- NOTE | 2025-02-28 12:15 | P.PN_ITS ---
Subjective 2 Subjective: plan for heart cath today denies chest pain at bedside Vitals/I&O/Wt Last Vital Signs Temp 97.9 F 02/28/25 07:16 Pulse 69 02/28/25 07:16 Resp 17 02/28/25 07:16 BP 120/89 02/28/25 07:16 Pulse Ox 96 02/28/25 07:16 O2 Del Method Room Air 02/28/25 04:00 02/27/25 02/28/25 02/28/25 22:59 06:59 14:59 Intake Total 230 / 470 Output Total 360 / 360 Balance -130 / 110 Weight last 48 hrs Weight 156 lb 4.8 oz Weight 158 lb 3.2 oz Physical Exam 2 Narrative: General: No acute distress, AO x3 HEENT: PERRLA, pupils bilaterally equal and reactive, pallors not present Chest: Normal vesicular breath sounds, no added sounds, equal good air entry bilaterally. some TTP CVS: S1-S2 regular, no murmurs, no tachycardia, no gallops, no rubs Abdomen: Soft, nontender, no organomegaly, bowel sounds present Neuro: No focal deficits, no facial deformity, AO x3, power 5/5 in all limbs Data 02/28/25 10:16 02/28/25 10:16 A&P Assessment and plan 1. Abnormal myocardial perfusion study: NPO continue asa, statin prn bb prn nitro await heart cath results 2. Family history of premature CAD: as above 3. Smokeless tobacco use: counseled PDMP PDMP Reviewed: Not Reviewed Attestations 2 Medical Necessity Statement*: chest pain evaluation Coding Level of Care Code 67145 Diagnoses Abnormal myocardial perfusion study R94.39 Family history of premature CAD Z82.49 Smokeless tobacco use Z72.0
[2025-02-28 16:00] VITALS: BP 127/81; PULSE 87; RESP 16; O2SAT 96
[2025-02-28 19:19] VITALS: BP 128/68; PULSE 90; RESP 23; TEMP 37; O2SAT 98
[2025-02-28 21:59] VITALS: PULSE 74
[2025-03-01] VITALS (8 sets, daily range): BP systolic 104–139; BP diastolic 63–86; PULSE 66–93; RESP 18–23; TEMP 36.4–36.9; O2SAT 96–98
--- NOTE | 2025-03-01 10:00 | P.PN_ITS ---
<Statement entered by Giovani Brunner MD - 03/02/25 20:09> Patient was evaluated and cared for in conjunction with an advanced practice practitioner. I personally examined the patient and reviewed the chart and all pertinent data including imaging, telemetry, and laboratory results. I discussed the patient in detail with the advanced practice practitioner. Please see their note for complete H&P testing result and agreed upon plan of care for the patient. Subjective 2 Subjective: Patient was seen by Dr. Sinclair, assumed care of patient today. He had an abnormal stress test on 02/27/2025, plan is for coronary angiogram once our [employer] is functional again either late this evening or early tomorrow morning. He has had some chest pain today, we will start him on heparin infusion, Nitropaste. Will keep him n.p.o. for now until further decisions on the [employer] availability are known. We did offer transfer to another facility that is PCI capable at this time, if we are able to do the procedure today or tomorrow patient would like to stay here. Vitals/I&O/Wt Last Vital Signs Temp 97.8 F 03/01/25 11:22 Pulse 78 03/01/25 11:22 Resp 20 H 03/01/25 11:22 BP 123/68 03/01/25 11:22 Pulse Ox 97 03/01/25 11:22 O2 Del Method Room Air 03/01/25 11:22 02/28/25 03/01/25 03/01/25 22:59 06:59 14:59 Intake Total 236 / 596 240 / 240 Output Total 0 / 0 Balance 236 / 596 0 / 596 240 / 240 Weight last 48 hrs Weight 257 lb 8 oz Weight 156 lb 4.8 oz Physical Exam 2 Const: COMMON NORMALS: no acute distress and patient oriented x3 GENERAL APPEARANCE: cooperative and comfortable ORIENTATION/CONSCIOUSNESS: Yes awake, Yes oriented to person, Yes oriented to place and Yes oriented to time Chest: COMMONS NORMALS: normal inspection of the chest and normal palpation of entire chest wall CHEST: Yes Symmetrical chest wall rise Resp: COMMON NORMALS: normal respiratory effort, No retractions, No use of accessory muscles and clear to auscultation bilaterally EFFORT & INSPECTION: Yes symmetric chest movement AUSCULTATION: clear to auscultation bilaterally Cardio: COMMON NORMALS: regular rate, regular rhythm, S1 normal heart sound present, S2 normal heart sound present, No gallops present (Cardio), No clicks present (Cardio), No murmurs present (Cardio) and No rub (Cardio) RATE: r egular rate RHYTHM: regular rhythm HEART SOUNDS: S1 normal heart sound present and S2 normal heart sound present PERIPHERAL PULSES: radial pulses present Extremity: COMMON NORMALS: no pedal edema Neuro: COMMON NORMALS: patient oriented x3 and moves all extremities S ENSORIUM/ORIENTATION: Yes oriented to person, Yes oriented to place and Yes oriented to time Data 03/01/25 11:57 02/28/25 10:16 A&P Assessment and plan 1. Family history of premature CAD: 2. Smokeless tobacco use: 3. Abnormal myocardial perfusion study: 4. Unstable angina: Plan: He had been having intermittent chest pain for the last 2 months, on Thursday began having much more frequent episodes as well as more severe, with diaphoresis and vomiting. He continues to have substernal chest pain with radiation to the left arm while admitted here. Will plan for him to be the first coronary angiogram once the [employer] is up and running. If his chest pain worsens after heparin infusion and Nitropaste given will recommend transfer if the [employer] is nonfunctional. Again he has been offered immediate transfer to PCI capable center, which he declined for now. PDMP PDMP Reviewed: Not Reviewed Attestations 2 Medical Necessity Statement*: Ischemic workup for abnormal stress test and unstable angina Coding Level of Care Code Acute Code for [facility] Diagnoses Family history of premature CAD Z82.49 Smokeless tobacco use Z72.0 Abnormal myocardial perfusion study R94.39 Unstable angina I20.0
[2025-03-01] MEDS: heparin drip 25,000 UNIT/500 ML PREMIX 34 UNIT IV (11:06)
[2025-03-01] MEDS: heparin 5,000 unit/mL INJ 1 mL IVP (11:07)
[2025-03-01 12:08] LABS: Platelet Count 288 10^3/cmm (157-399)
--- NOTE | 2025-03-01 12:29 | P.PN_ITS ---
Subjective 2 Subjective: denies chest pain awaiting heart cath Vitals/I&O/Wt Last Vital Signs Temp 97.8 F 03/01/25 11:22 Pulse 78 03/01/25 11:22 Resp 20 H 03/01/25 11:22 BP 123/68 03/01/25 11:22 Pulse Ox 97 03/01/25 11:22 O2 Del Method Room Air 03/01/25 11:22 02/28/25 03/01/25 03/01/25 22:59 06:59 14:59 Intake Total 236 / 596 240 / 240 Output Total 0 / 0 Balance 236 / 596 0 / 596 240 / 240 Weight last 48 hrs Weight 257 lb 8 oz Weight 156 lb 4.8 oz Physical Exam 2 Narrative: General: No acute distress, AO x3 HEENT: PERRLA, pupils bilaterally equal and reactive, pallors not present Chest: Normal vesicular breath sounds, no added sounds, equal good air entry bilaterally. some TTP CVS: S1-S2 regular, no murmurs, no tachycardia, no gallops, no rubs Abdomen: Soft, nontender, no organomegaly, bowel sounds present Neuro: No focal deficits, no facial deformity, AO x3, power 5/5 in all limbs Data 03/01/25 11:57 02/28/25 10:16 A&P Assessment and plan 1. Abnormal myocardial perfusion study: NPO after midnight continue asa, statin heparin drip per cards rec prn bb prn nitro await heart cath 2. Family history of premature CAD: as above 3. Smokeless tobacco use: counseled PDMP PDMP Reviewed: Not Reviewed Attestations 2 Medical Necessity Statement*: awaiting heart cath Coding Level of Care Code 49371 Diagnoses Abnormal myocardial perfusion study R94.39 Family history of premature CAD Z82.49 Smokeless tobacco use Z72.0
[2025-03-01 17:43] LABS: Partial Thromboplastin Time 95.6 SECONDS (23.9-36.7)
[2025-03-02] VITALS (8 sets, daily range): BP systolic 109–139; BP diastolic 64–91; PULSE 67–81; RESP 12–20; TEMP 35.8–36.9; O2SAT 95–98
[2025-03-02 01:27] LABS: Partial Thromboplastin Time 57.7 SECONDS (23.9-36.7)
[2025-03-02] MEDS: heparin drip 25,000 UNIT/500 ML PREMIX 27 UNIT IV ×2 (03:16→22:10)
[2025-03-02 08:22] LABS: Partial Thromboplastin Time 60.0 SECONDS (23.9-36.7)
--- NOTE | 2025-03-02 09:38 | P.PN_ITS ---
<Statement entered by Giovani Brunner MD - 03/02/25 20:04> Patient was evaluated and cared for in conjunction with an advanced practice practitioner. I personally examined the patient and reviewed the chart and all pertinent data including imaging, telemetry, and laboratory results. I discussed the patient in detail with the advanced practice practitioner. Please see their note for complete H&P testing result and agreed upon plan of care for the patient. Subjective 2 Subjective: No recurrence of chest pain overnight. Blood pressure and heart rate well- controlled. Nitropaste ordered but not placed. Lovenox is currently on hold, he is receiving heparin infusion. Vitals/I&O/Wt Last Vital Signs Temp 98.2 F 03/02/25 07:53 Pulse 79 03/02/25 07:53 Resp 12 03/02/25 07:53 BP 123/91 03/02/25 07:53 Pulse Ox 96 03/02/25 07:53 O2 Del Method Room Air 03/02/25 03:23 03/01/25 03/02/25 03/02/25 22:59 06:59 14:59 Intake Total 732.167 / 1220.000 247.833 / 1220.000 149.85 / 149.85 Balance 732.167 / 1220.000 247.833 / 1220.000 149.85 / 149.85 Weight last 48 hrs Weight 268 lb 6.4 oz Weight 257 lb 8 oz Physical Exam 2 Const: COMMON NORMALS: no acute distress and patient oriented x3 GENERAL APPEARANCE: cooperative and comfortable ORIENTATION/CONSCIOUSNESS: Yes awake, Yes oriented to person, Yes oriented to place and Yes oriented to time Chest: COMMONS NORMALS: normal inspection of the chest and normal palpation of entire chest wall CHEST: Yes Symmetrical chest wall rise Resp: COMMON NORMALS: normal respiratory effort, No retractions, No use of accessory muscles and clear to auscultation bilaterally EFFORT & INSPECTION: Yes symmetric chest movement AUSCULTATION: clear to auscultation bilaterally Cardio: COMMON NORMALS: regular rate, regular rhythm, S1 normal heart sound present, S2 normal heart sound present, No gallops present (Cardio), No clicks present (Cardio), No murmurs present (Cardio) and No rub (Cardio) RATE: r egular rate RHYTHM: regular rhythm HEART SOUNDS: S1 normal heart sound present and S2 normal heart sound present PERIPHERAL PULSES: radial pulses present Extremity: COMMON NORMALS: no pedal edema Neuro: COMMON NORMALS: patient oriented x3 and moves all extremities S ENSORIUM/ORIENTATION: Yes oriented to person, Yes oriented to place and Yes oriented to time Data 03/01/25 11:57 02/28/25 10:16 A&P Assessment and plan 1. Unstable angina: 2. Smokeless tobacco use: 3. Family history of premature CAD: 4. Abnormal myocardial perfusion study: Plan: We anticipate taking him for coronary angiogram late tonight or early in the morning. He can eat breakfast, hold lunch until timing of angiogram is definite. If he has recurrence of chest pain he can ask for the Nitropaste. Continue aspirin, statin, heparin infusion. He can get up in the chair and ambulate around the room if desired. Continue to hold Lovenox. PDMP PDMP Reviewed: Not Reviewed Attestations 2 Medical Necessity Statement*: Ischemic workup Coding Level of Care Code Acute Code for [facility] Diagnoses Unstable angina I20.0 Smokeless tobacco use Z72.0 Family history of premature CAD Z82.49 Abnormal myocardial perfusion study R94.39
--- NOTE | 2025-03-02 14:07 | P.PN_ITS ---
Subjective 2 Subjective: Patient without symptoms of chest pain pressure palpitations or shortness of breath Vitals/I&O/Wt Last Vital Signs Temp 98.2 F 03/02/25 07:53 Pulse 75 03/02/25 12:00 Resp 19 H 03/02/25 12:00 BP 109/64 03/02/25 12:00 Pulse Ox 96 03/02/25 12:00 O2 Del Method Room Air 03/02/25 03:23 03/01/25 03/02/25 03/02/25 22:59 06:59 14:59 Intake Total 732.167 / 972.167 247.833 / 1220.000 629.85 / 629.85 Balance 732.167 / 972.167 247.833 / 1220.000 629.85 / 629.85 Weight last 48 hrs Weight 121.744 kg Weight 116.8 kg Physical Exam 2 Narrative: Heart regular rate and rhythm normal S1-S2 lungs clear to auscultation without wheezes rales or rhonchi abdomen soft nontender nondistended positive bowel sounds no hepatosplenomegaly extremities no clubbing cyanosis or edema Data 03/01/25 11:57 02/28/25 10:16 A&P Assessment and plan 1. Abnormal myocardial perfusion study: Continue heparin drip per cards rec prn bb prn nitro await heart cath 2. Family history of premature CAD: as above 3. Smokeless tobacco use: counseled PDMP PDMP Reviewed: Not Reviewed Attestations 2 Medical Necessity Statement*: Cardiac Ischemic workup Coding Level of Care Code 28976 Diagnoses Abnormal myocardial perfusion study R94.39 Family history of premature CAD Z82.49 Smokeless tobacco use Z72.0
[2025-03-02 15:51] LABS: Partial Thromboplastin Time 56.4 SECONDS (23.9-36.7)
[2025-03-03] VITALS (8 sets, daily range): BP systolic 110–123; BP diastolic 62–92; PULSE 64–93; RESP 14–20; TEMP 36.4–36.8; O2SAT 94–97; BMI 33.2
[2025-03-03 04:14] LABS: Platelet Count 288 10^3/cmm (157-399)
[2025-03-03 04:36] LABS: Partial Thromboplastin Time 61.2 SECONDS (23.9-36.7)
--- NOTE | 2025-03-03 09:30 | P.PN_ITS ---
<Statement entered by Giovani Brunner MD - 03/03/25 19:07> Patient was evaluated and cared for in conjunction with an advanced practice practitioner. I personally examined the patient and reviewed the chart and all pertinent data including imaging, telemetry, and laboratory results. I discussed the patient in detail with the advanced practice practitioner. Please see their note for complete H&P testing result and agreed upon plan of care for the patient. Subjective 2 Subjective: No significant chest pain overnight or this morning. Will plan for coronary angiogram today, remain n.p.o. Vitals/I&O/Wt Last Vital Signs Temp 98.3 F 03/03/25 07:46 Pulse 88 03/03/25 07:46 Resp 20 H 03/03/25 07:46 BP 115/80 03/03/25 07:46 Pulse Ox 96 03/03/25 04:00 O2 Del Method Room Air 03/03/25 04:00 03/02/25 03/03/25 03/03/25 22:59 06:59 14:59 Intake Total 710.15 / 1531.70 191.7 / 1531.70 Balance 710.15 / 1531.70 191.7 / 1531.70 Weight last 48 hrs Weight 259 lb Weight 268 lb 6.4 oz Physical Exam 2 Const: COMMON NORMALS: no acute distress and patient oriented x3 GENERAL APPEARANCE: cooperative and comfortable ORIENTATION/CONSCIOUSNESS: Yes awake, Yes oriented to person, Yes oriented to place and Yes oriented to time Chest: COMMONS NORMALS: normal inspection of the chest and normal palpation of entire chest wall CHEST: Yes Symmetrical chest wall rise Resp: COMMON NORMALS: normal respiratory effort, No retractions, No use of accessory muscles and clear to auscultation bilaterally EFFORT & INSPECTION: Yes symmetric chest movement AUSCULTATION: clear to auscultation bilaterally Cardio: COMMON NORMALS: regular rate, regular rhythm, S1 normal heart sound present, S2 normal heart sound present, No gallops present (Cardio), No clicks present (Cardio), No murmurs present (Cardio) and No rub (Cardio) RATE: r egular rate RHYTHM: regular rhythm HEART SOUNDS: S1 normal heart sound present and S2 normal heart sound present PERIPHERAL PULSES: radial pulses present Extremity: COMMON NORMALS: no pedal edema Neuro: COMMON NORMALS: patient oriented x3 and moves all extremities S ENSORIUM/ORIENTATION: Yes oriented to person, Yes oriented to place and Yes oriented to time Data 03/03/25 03:45 02/28/25 10:16 A&P Assessment and plan 1. Unstable angina: 2. Abnormal myocardial perfusion study: 3. Smokeless tobacco use: Plan: Stable from a cardiovascular perspective at this time, will have coronary angiogram today. Continue heparin infusion, Nitro-Bid as needed. PDMP PDMP Reviewed: Not Reviewed Attestations 2 Medical Necessity Statement*: Ischemic workup for abnormal stress test and chest pain Coding Level of Care Code Acute Code for [facility] Fwd Diagnoses Unstable angina I20.0 Abnormal myocardial perfusion study R94.39 Smokeless tobacco use Z72.0
[2025-03-03] MEDS: nitroglycerin 1 gm/inch oint Pkt 0.5 INCH TOPICAL (14:25)
[2025-03-03] MEDS: heparin drip 25,000 UNIT/500 ML PREMIX 27 UNIT IV (16:42)
[2025-03-03 17:05] LABS: Partial Thromboplastin Time 58.4 SECONDS (23.9-36.7)
[2025-03-04 03:56] VITALS: BP 119/82; PULSE 83; RESP 18; TEMP 36.9; O2SAT 94
[2025-03-04 04:39] LABS: Partial Thromboplastin Time 60.5 SECONDS (23.9-36.7)
[2025-03-04 06:00] VITALS: PULSE 72; BMI 33.0
--- NOTE | 2025-03-04 06:17 | XACV_ITS ---
Exam Room: [facility] Ht: 188 cm Wt: 71 kg BSA: 1.91 m2 Gender: Male : 1975 Any Known Allergies: Eggs Exam Priority: Routine Procedure(s): Procedure Description: Diagnostic procedure Procedure Description: Left Heart Catheterization Procedure Description: Left ventriculography Procedure Description: Coronary Angiography MIKEKannan SAMAYOA; Diagnostic Cath Status: Elective Diagnostic Findings * No disease noted in the Left Main, Left Anterior Descending, Right, or Circumflex coronary arteries. * Coronary angiography shows right dominance. Conclusions 1. No disease noted in the Left Main, Left Anterior Descending, Right, or Circumflex coronary arteries. 2. Hyperdynamic left ventricular systolic function. Ejection fraction of 70%. Recommendations * Continue current medical management and risk factor modification. Diagnostic RX Recommendation: none LV EDP: 17 mmHg Ventriculography Ejection Fraction: 70.0 % Pressures Phase:Rest AO : 141 / 87 ( 110 ) @ 11:08:00 AM LV : 158 / -8 / 17 @ 11:07:00 AM 161 / -10 / 16 @ 11:08:00 AM 151 / -8 / 15 @ 11:08:00 AM Valves Phase:DefaultPhase AV : 10.0 @ 10:15:32 AM AV Mean Gradient: 15.0 @ 10:15:32 AM Clinical Evaluation EBL: 5mL-10mL Procedural Details Procedure Consent Obtained. Admit Source: In Patient. Pre-Procedure Time Out. Identified patient by full name and date of as verbalized by the patient/guarantor. Does the consent match the physician's order: Yes. Inpatient/Outpatient History & Physical on Chart: Yes. If H&P is completed, is and addenduem needed: No; If yes, is the addendum complete: N/A. Visualize and Verify Site with Patient/Guarantor: N/A. Relevant Radiology Images available: Yes. The risks, benefits, and alternatives of sedation and/or procedure were discussed by physician. The patient agrees to continue. Procedure started. [facility] Clinical Fraility Score: 3: Managing Well. Rn Clinical Documentation Specialist Indications: Worsening Angina. Chest Pain Symptom Assessment: Typical Angina Symptoms. Correct patient, site and procedure confirmed by cath team. Current diagnosis: Chest Pain, Abnormal stress test. PERRLA. Strong, equal hand collar baster jumpbasting bilaterally. Lungs clear x 5 lobes. IV Site on Arrival: 20 gauge in the left wrist. IV Fluids: 0.9% NaCl at KVO. 0 mL infused prior to phlebotomy lab assistant. Pre Procedural Pulses: bilateral dorsalis pedis was 2+. Pre Procedural Pulses: bilateral radial was 3+. Oxygen started at 2liters/min via nasal canula. right radial was prepped with chloroprep then draped in the usual sterile fashion. right groin was prepped with chloroprep then draped in the usual sterile fashion. Physician notified. Baseline sample Acquired. HR: 81 BPM. Physician arrived. Delay in procedure due to equipment. Physician scrubbed in. Patient taken off table due to STEMIPT in ER. Vital chart was stopped. Procedure started. Pt arrived from CPRU at this time. Identified patient by full name and date of as verbalized by the patient/guarantor. Accurate & Complete Informed Consent: Yes. Oxygen started at 2liters/min via nasal canula. right radial was prepped with chloroprep then draped in the usual sterile fashion. right groin was prepped with chloroprep then draped in the usual sterile fashion. Physician notified. Baseline sample Acquired. HR: 71 BPM. PERRLA. Strong, equal hand collar baster jumpbasting bilaterally. Lungs clear x 5 lobes. IV Site on Arrival: 20 gauge in the left wrist. Physician arrived. Immediate Pre-Procedure Time Out. Correct Patient: Yes; Correct Procedure: Yes; Correct Site: Yes; Correct Patient Position: Yes; Correct Supplies: Yes; Dried Flammable Prep: Yes; Blood Products Available: No;. Lidocaine 1% infiltrated to the right radial. Arterial access obtained. ACT drawn. Results 152 seconds. Therapeutic limits - pre-heparin administration 90-150 seconds and monitoring heparin during a vascular procedure >250 seconds. A 5 ukrainian Jose C catheter in over wire. Multiple views taken of left coronary artery. Catheter redirected to the RCA. Multiple views taken of right coronary artery. Catheter removed over the exchange wire. A 5 ukrainian Angled Pig catheter in over wire. EDP Sample taken: LV 158/-9,17; HR: 93 BPM; SpO2: 99%. LV gram performed in FLYNN @ 10 mL/second for a total of 30 mL. EDP Sample taken: LV 161/-11,16; HR: 85 BPM; SpO2: 99%. Pullback taken: LV 151/-9,15; AO 141/87(110); Mean: 15mmHg, Peak to Peak: 10mmHg, SEP: 8sec/min; HR: 91 BPM; SpO2: 99%. Catheter removed over the exchange wire. Post Procedure: Pulses reassessed and unchanged. PERRLA. Strong, equal hand collar baster jumpbasting bilaterally. No VTE prophylaxis required. Medication's Wasted: Lidocaine 1% = 18 mL. Medication's Wasted: Nitro = 49.8 mg. Medication's Wasted: Heparin = 1000 units. Total IV fluids: 50 mL. A TR Band was successful obtaining hemostatsis at the Right Radial artery insertion site. Estimated blood loss: 5mL-10mL. Complications: None . Responsiveness - Normal response to verbal stimuli; alert and oriented, PERRLA. Airway - Unaffected, no intervention required; spontaneous ventilation. Circulation: W/N/L, pulses unchanged. Nausea/Vomiting: No. Post-op diagnosis: Normal coronaries. Procedure completed. Patient transferred by bed to 1st floor. Vital chart was stopped. Access Site Site: Right Radial artery Sheath Size: 6 Fr Hemostasis Method: TR Band Hemostasis Success: Successful Procedure Medications Start: 7:38 AM Stop: 7:38 AM Medication: Fentanyl Amount: 50 mcg Route: I.V. Start: 8:16 AM Stop: 8:16 AM Medication: Fentanyl Amount: 50 mcg Route: I.V. Start: 8:16 AM Stop: 8:16 AM Medication: Versed Amount: 1 mg Route: I.V. Start: 9:52 AM Stop: 9:52 AM Medication: Versed Amount: 1 mg Route: I.V. Start: 9:52 AM Stop: 9:52 AM Medication: Fentanyl Amount: 25 mcg Route: I.V. Start: 9:48 AM Stop: 9:48 AM Medication: Versed Amount: 1 mg Route: I.V. Start: 9:48 AM Stop: 9:48 AM Medication: Fentanyl Amount: 50 mcg Route: I.V. Start: 9:55 AM Stop: 9:55 AM Medication: Nitrogylcerin Amount: 50 mcg Route: S.Q. Start: 9:57 AM Stop: 9:57 AM Medication: Nitrogylcerin Amount: 200 mcg Route: I.A. Start: 10:08 AM Stop: 10:08 AM Medication: Fentanyl Amount: 25 mcg Route: I.V. Start: 10:01 AM Stop: 10:01 AM Medication: Heparin Amount: 5000 units Route: I.V. I, the attending physician, have reviewed and verified all procedure medications. Yes, all medications given per verbal order History/Risk Factors Hypertension: No Dyslipidemia: No Peripheral Arterial Disease (PAD): No Myocardial Infarction (CO): No Obesity: No Renal Disease: No Prior Interventions PCI: No CABG: No Valve Surgery: No Report Signatures Finalized by Giovani Brunner MD on 03/04/2025 10:35 AM
--- NOTE | 2025-03-04 07:19 | PC.NURSE ---
Patient heparin drip stopped at this time. Patient taken to forestry farm laborer via bed by forestry farm laborer staff. No distress observed.
--- NOTE | 2025-03-04 07:45 | W.PM.OPSUD ---
Surgery/Procedure H&P Update DATE OF PROCEDURE: March 04, 2025 DATE H&P PERFORMED: 02/26/25 H&P UPDATE INFORMATION: I have reviewed H&P completed within last 30 days, I have examined patient prior to procedure, No changes to prior documentation and Changes to prior documentation as noted here PREOP DIAGNOSIS: Unstable angina PRIMARY INDICATION FOR PROCEDURE: Chest pain/unstable angina PATIENT REASSESSED PRIOR TO SEDATION, WITH NO CHANGE NOTED: Yes PHYSICAL EXAM: alert, oriented x 3, clear to auscultation bilaterally, regular rate & rhythm and operative site marked AIRWAY EVAL/ANESTHESIA PLAN: ASA II, Risks, benefits & alternatives of sedation and/or procedure discussed and Patient agrees to continue as planned ADDITIONAL INFORMATION: Patient has been explained all risk-benefit and alternative for the procedure. Patient understand 2% risk of stroke major bleed. Patient restand 5% risk of minor bleeding bruising infection hematoma pseudoaneurysm urgent emergent vascular or coronary artery bypass surgery and contrast induced nephropathy. Patient agrees to it and would like to proceed with that.
--- NOTE | 2025-03-04 09:35 | PC.NURSE ---
patient is becoming increasingly upset about not being able to be taken back to catheterization laboratory technician due to technical issues in catheterization laboratory technician. Patient was on the table this morning by 0722 when the equipment malfunctioned once again. A Nicole rep was called in and the problem was fixed but at that same time a STEMI came in from the ED. Patient was pulled off the cath table and taken to CPRU. While in CPRU I sat with patient who said I don't care what happens, I'm leaving today, whether I go to cath or not. I explained to him that he would want us to prioritize him if he was having an active stemi, but that did not seem to help. Patient said I don't think I am going to even go to catheterization laboratory technician today. I explained to him that he would be taken back into lab in approximately one hour and patient said he didn't care if he had a heart attack or not, he was leaving today. Patient's also trying to calm patient down but patient stated that it was only making things worse. AOC Maik Moyer notified of situation and was put on standby to come speak with the patient if necessary. As I write this, catheterization laboratory technician is being clearned from the STEMI alert, who is now in CSU, and patient should go back in any minute. This was relayed to patient and his , however patient still continued to complain about the hospital and his care. 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
--- NOTE | 2025-03-04 10:20 | P.PN_ITS ---
Subjective 2 Subjective: Patient underwent left heart cath, noted to have normal coronary, left ventricle function is normal. Medications: Reviewed: Yes Medication Review Details: Current Medications Acetaminophen (Acetaminophen 325 Mg Tablet) 650 mg PO Q6H PRN PRN Reason: Mild/Mod Pain Or Temp >/= 101 Aspirin (Aspirin 81 Mg Ec Tablet) 81 mg PO DAILY [facility] Last Admin: 02/27/25 08:21 Dose: 81 mg Atorvastatin Calcium (Atorvastatin 40 Mg Tablet) 40 mg PO BEDTIME [facility] Last Admin: 02/27/25 20:33 Dose: 40 mg Enoxaparin Sodium (Enoxaparin 40 Mg/0.4 Ml Syringe) 40 mg SUBCUT Q24H [facility] Last Admin: 02/27/25 13:00 Dose: 40 mg Esmolol HCl (Esmolol 100 Mg/10 Ml Sdv) 5 mg IV PRN PRN PRN Reason: See dose instructions Ketorolac Tromethamine (Ketorolac 30 Mg/Ml Inj) 15 mg IVP Q8H PRN PRN Reason: MODERATE PAIN Stop: 03/03/25 10:58 Metoprolol Tartrate (Metoprolol Tartrate 1 Mg/1 Ml Sdv 5 Ml) 5 mg IV PRN PRN PRN Reason: See dose instructions Morphine Sulfate (Morphine 4 Mg/Ml Sdv 1 Ml) 2 mg IVP Q4H PRN PRN Reason: SEVERE PAIN Naloxone HCl (Naloxone 0.4 Mg/Ml Sdv) 0.1 mg IVP Q2M PRN PRN Reason: OPIATERV Nitroglycerin (Nitroglycerin 1 Gm/Inch Oint Pkt) 0.5 inch TOPICAL Q6H [facility] Last Admin: 02/27/25 20:35 Dose: Not Given Nitroglycerin (Nitroglycerin 0.4 Mg Sublingual Tablet) 0.4 mg SUBLINGUAL Q5M PRN PRN Reason: CHEST PAIN Stop: 02/28/25 06:38 Ondansetron HCl (Ondansetron 2 Mg/Ml Sdv 2 Ml) 4 mg IVP Q8H PRN PRN Reason: vomiting, or N/V if npo Ondansetron HCl (Ondansetron 2 Mg/Ml Sdv 2 Ml) 4 mg IVP PRN PRN PRN Reason: NAUSEA Pantoprazole Sodium (Pantoprazole Dr 40 Mg Tablet) 40 mg PO DAILY [facility] Last Admin: 02/27/25 08:22 Dose: 40 mg Vitals/I&O/Wt Last Vital Signs Temp 98.4 F 03/04/25 03:56 Pulse 72 03/04/25 06:00 Resp 18 03/04/25 03:56 BP 119/82 03/04/25 03:56 Pulse Ox 94 03/04/25 03:56 O2 Del Method Room Air 03/04/25 03:56 03/03/25 03/04/25 03/04/25 22:59 06:59 14:59 Intake Total 319.1 / 319.1 314.1 / 633.2 69.75 / 69.75 Balance 319.1 / 319.1 314.1 / 633.2 69.75 / 69.75 Weight last 48 hrs Weight 257 lb 7 oz Weight 259 lb Physical Exam 2 Const: COMMON NORMALS: alert HENMT: OTHER: GENERAL: Patient is alert, awake and oriented x3. HEART: Regular S1 and S2. No murmur, rub or gallop. LUNGS: Clear to auscultate bilaterally. CENTRAL NERVOUS SYSTEM: Grossly nonfocal. EXTREMITIES: Lower extremities with out edema bilaterally. Resp: COMMON NORMALS: clear to auscultation bilaterally AUSCULTATION: clear to auscultation bilaterally Neuro: SENSORIUM/ORIENTATION: Yes alert Data 03/03/25 03:45 02/28/25 10:16 A&P Assessment and plan 1. Unstable angina: 2. Abnormal myocardial perfusion study: 3. Smokeless tobacco use: Plan: Patient underwent left heart catheterization noted to have normal coronaries without significant stenosis Left ventricle ejection fraction was normal. Most likely stress test negative due to attenuation artifact. Chest pain most likely due to gastritis/esophagitis. Advise placing patient on Protonix. Once complete bedrest in 3 to 4 hours once radial band is off patient can be discharged home. Follow-up with primary care physician in 2 weeks PDMP PDMP Reviewed: Not Reviewed Attestations 2 Medical Necessity Statement*: Patient require continuation of hospitalization postop/post cath care Coding Level of Care Code Acute Code for g Fwd Diagnoses Unstable angina I20.0 Abnormal myocardial perfusion study R94.39 Smokeless tobacco use Z72.0
--- NOTE | 2025-03-04 10:32 | PC.NURSE ---
Patient received to floor s/p [facility] via right radial artery with TR band in place. Procedure was diagnostic only. Patient is ready to leave AMA with or without TR band in place. Instructed patient on need for the tr band to prevent excessive bleeding. Patient with spouse at side. Breakfast and coke provided. Informed Dr Brandt.
--- NOTE | 2025-03-04 12:16 | PM.DCS ---
Discharge Providers Date of Admission: 02/25/25 10:33 Date of Discharge: March 04, 2025 Attending Provider at Admission: Nini Olivas MD Attending Provider at Discharge: Peyman Brandt DO Primary Care Provider: Medardo Bear Diagnoses at Discharge Discharge Diagnosis 1. Unstable angina: 2. Abnormal myocardial perfusion study: 3. Smokeless tobacco use: Reason for Visit Reason for Visit: Chest Pain Brief History: Patient with family history of CAD and active tobacco use presents with left-sided chest pain that woke him up from sleep and it was radiating into his left arm. Patient was brought in for cardiac workup Hospital Course Hospital Course Patient was admitted to the telemetry unit. Troponins were negative. Patient underwent stress test that was read as abnormal. Plan for cath. However our Syrup Machine Laborer required repair. Patient finally had heart catheterization on 03/04/2025. There was no significant stenosis no intervention. Patient has history of reflux and multiple dietary influences to contribute to esophagitis or gastritis. Patient uses smokeless tobacco consumes large amount of soda products and has a high fat overall poor diet. Will treat with Protonix 40 mg twice daily for 3 months. He was strongly advised to quit tobacco use. He was also strongly encouraged to changes diet. He will be sent home with these instructions. 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 echo complete* [id number] Routine Ultrasound 02/25/25 13:31 Completed Pending at discharge Category Date Time Status [employer]ERY request for service Routine Exams 03/03/25 11:25 Ordered Cardiac Stress Test MIBI [Sestamibi Stress Test Request Exams 02/26/25 11:02 Stop Req ] Routine Platelet Count Q2D Lab 03/05/25 04:00 Ordered Radiology Impressions Chest CTA 02/26/25 10:54 IMPRESSION: 1. No acute central or lobar pulmonary embolism. 2. No focal consolidation, pneumothorax, or pleural effusion. Laboratory Results WBC 9.57 10^3/uL (3.29-11.43) 02/28/25 10:16 RBC 5.68 10^6/uL (3.85-5.65) H 02/28/25 10:16 Hgb 17.30 g/dL (11.27-16.99) H 02/28/25 10:16 Hct 49.6 % (37-53) 02/28/25 10:16 MCV 87.3 fl (82-101) 02/28/25 10:16 MCH 30.5 pg (27-33) 02/28/25 10:16 MCHC 34.9 g/dL (30-55) 02/28/25 10:16 RDW 11.8 % (12.1-15.1) L 02/28/25 10:16 Plt Count 288 10^3/cmm (157-399) 03/03/25 03:45 MPV 9.4 fL (7.4-10.4) 02/28/25 10:16 Neut % (Auto) 72.6 % 02/28/25 10:16 Lymph % (Auto) 18.4 % 02/28/25 10:16 [place] % (Auto) 7.2 % 02/28/25 10:16 Eos % (Auto) 1.0 % 02/28/25 10:16 Baso % (Auto) 0.3 % 02/28/25 10:16 Neut # (Auto) 6.94 10^3/uL (1.8-7.7) 02/28/25 10:16 Lymph # (Auto) 1.8 10^3/uL (0.8-4.8) 02/28/25 10:16 [place] # (Auto) 0.7 10^3/uL (0.2-0.9) 02/28/25 10:16 Eos # (Auto) 0.1 10^3/uL (0.0-0.8) 02/28/25 10:16 Baso # (Auto) 0.0 10^3/uL (0.0-0.1) 02/28/25 10:16 Nucleated RBC % (auto) 0 % 02/28/25 10:16 Nucleated RBCs # 0.0 /100WBC 02/28/25 10:16 APTT 60.5 SECONDS (23.9-36.7) H 03/04/25 03:59 D-Dimer <= 0.27 ug/mLFEU (0-0.59) 02/25/25 15:13 Sodium 139 mmol/L (136-145) 02/28/25 10:16 Potassium 3.9 mmol/L (3.5-5.1) 02/28/25 10:16 Chloride 104 mmol/L (98-107) 02/28/25 10:16 Carbon Dioxide 25 mmol/L (22-29) 02/28/25 10:16 Anion Gap 13.9 (5-19) 02/28/25 10:16 BUN 12 mg/dL (6-20) 02/28/25 10:16 Creatinine 0.9 mg/dL (0.7-1.2) 02/28/25 10:16 GFR Calculation 90.4 mL/min (90-130) 02/28/25 10:16 Glucose 92 mg/dL (65-115) 02/28/25 10:16 Estimat Average Glucose 114 02/25/25 13:27 Hemoglobin A1c 5.6 % (4.0-6.0) 02/25/25 13:27 Calculated Osmolality 287 mOsm/kg (285-295) 02/28/25 10:16 Calcium 9.5 mg/dL (8.5-10.5) 02/28/25 10:16 Total Bilirubin 0.7 mg/dL (0.15-1.2) 02/28/25 10:16 AST 23 U/L (0-40) 02/28/25 10:16 ALT 47 U/L (0-41) H 02/28/25 10:16 Alkaline Phosphatase 85 U/L (40-130) 02/28/25 10:16 Troponin T 5th Gen ng/L Cancelled 02/25/25 13:27 Troponin T Baseline < 6 ng/L (0-15) 02/25/25 13:27 Troponin T 120 Minute < 6.0 ng/L (0-15) 02/25/25 15:13 Delta Troponin T 0 ABS# (0-10) 02/25/25 15:13 Troponin T Hi Sens 6Hr < 6.0 ng/L (0-15) 02/25/25 20:33 Troponin T Hi Sens 6Hr Delta 0 ng/L (0-12) 02/25/25 20:33 Total Protein 7.5 g/dL (6.6-8.7) 02/28/25 10:16 Albumin 4.4 g/dL (3.5-5.2) 02/28/25 10:16 Globulin 3.1 g/dL (1.3-4.6) 02/28/25 10:16 Triglycerides 125 mg/dL (0-150) 02/25/25 13:27 Cholesterol 161 mg/dL (0-200) 02/25/25 13:27 LDL Cholesterol, Calc 103 mg/dL (50-129) 02/25/25 13:27 HDL Cholesterol 33 mg/dL (60-100) L 02/25/25 13:27 LDL/HDL Ratio 3.12 RATIO (0.00-3.22) 02/25/25 13:27 Cholesterol/HDL Ratio 4.88 mg/dL (1.0-5.00) 02/25/25 13:27 TSH 1.27 uIU/mL (0.27-4.20) 02/25/25 13:27 Vitals Last Vital Signs Temp 98.4 F 03/04/25 03:56 Pulse 72 03/04/25 06:00 Resp 18 03/04/25 03:56 BP 119/82 03/04/25 03:56 Pulse Ox 94 03/04/25 03:56 O2 Del Method Room Air 03/04/25 03:56 Discharge Plan Discharge Patient Disposition: Home Condition: Stable Prescriptions: New pantoprazole [Protonix] 40 mg tablet,delayed release (DR/EC) 40 mg PO BID Qty: 60 2RF Rx Instructions: take on an empty stomach as directed Discontinued Aspirin Low-Strength 81 mg PO DAILY Student Financial Services Counselor [place] for DC: Cardiology and Hospitalist Referrals: Elva Sinclair MD [Physician, Cardiology] - 03/10/25 10:30 am Medardo Bear [Primary Care Provider, Family Practice] - 03/09/25 1:45 pm Discharge Diet: As Directed and Low Cholesterol Discharge Activity: Increase activity as tolerated Patient Instructions: How to Stop Smoking (DC), Diet for Stomach Ulcers and Gastritis (GEN), GERD (Gastroesophageal Reflux Disease) (GEN), Post Angiogram Home Care Instructions, Patient Portal & Rebecca Instructions Plan of Treatment: Stop taking aspirin other than nonsteroidal anti-inflammatories like ibuprofen while on 3 months of Protonix twice a day. Follow dietary guidelines for the prevention of reflux. Recommended to stop smoking tobacco as this is contributing to reflux and gastritis Sodas and other acidic liquids and foods also contribute to reflux. Discharge Attestations Time Spent in Discharge Care*: less than 30 min Quality Metrics Clinical Quality Measures [ No reported AMI, CVA or VTE this stay] Coding Level of Care Code Acute Code for Chg Fwd Diagnoses Unstable angina I20.0 Abnormal myocardial perfusion study R94.39 Smokeless tobacco use Z72.0
--- NOTE | 2025-03-04 13:52 | PC.NURSE ---
TR band removed at 1230. Initiated removal of air from TR band at 1045 removing 1-2ml air every 15-20min until band removed. No s/s of bleeding or hematoma formation observed. Covered site with 2x2 and coban. Instructed patient on site care with restrictions. Patient verbalized complete understanding. Patient is wanting to go home. Dr Brandt has been informed and did place discharge orders.
--- NOTE | 2025-03-04 13:55 | PC.NURSE ---
Patient discharged to home. Instruction provided regarding follow up needs, new medications and GERD care. Patient verbalized complete understanding. patient refused to be placed on telemetry and to have vitals checked during recovery. MD aware. There were no s/s of bleeding or hematoma formation observed. Reinforced site care instructions. Patient insisted on ambulating to private vehicle. Patient denies pain or needs. No distress observed.
== END 2025-03-04 13:59 | disposition home or self-care (01) ==
PROVIDERS: Internal Medicine; Internal Medicine Cardiovascular Disease; Nurse Practitioner Family; Admitting Provider Student in an Organized Health Care Education/Training Program; PCP Family Medicine; Visit Provider Internal Medicine
DX: I20.0 Unstable angina (principal); R94.39 Abnormal result of other cardiovascular function study; F17.220 Nicotine dependence, chewing tobacco, uncomplicated; Z79.82 Long term (current) use of aspirin; K21.9 Gastro-esophageal reflux disease without esophagitis; Z82.49 Family history of ischemic heart disease and other diseases of the circulatory system
CPT/HCPCS: 36415; 71275; 78452; 80053; 80061; 83036; 84443; 84484; 85025; 85049; 85347; 85378; 85730; 93005; 93017; 93306; 93458; 96372; 99152; 99153; A9500; C1769; C1887; C1894; G0378; G0379; J1644; J1650; J2250; J3010; J3490; J7030; J9999; Q9967